=== PATIENT | female | born 1985 | race Caucasian/White ===

== ENCOUNTER 2018-12-25 01:45 | Inpatient (IN) | payer OTHER ==
[2018-12-25] MEDS ORDERED: DEXTROSE 5%-LACTATED RINGERS 500 ML IV ONE ×2 (04:00→05:00)
[2018-12-25] MEDS ORDERED: DEXTROSE 5%-LACTATED RINGERS 1,000 ML IV SCH (07:45)
[2018-12-25 08:12] VITALS: BMI 22.8
[2018-12-25] MEDS ORDERED: BUTORPHANOL TARTRATE 1 MG/ML VIAL IVPUSH ONE (08:15)
[2018-12-25] MEDS ORDERED: PROMETHAZINE HCL 25 MG/1 ML VIAL IVPUSH ONE (08:15)
[2018-12-25 08:19] LABS: COCAINE, UR NEGATIVE ng/ml (CUTOFF=300); METHADONE, UR NEGATIVE ng/ml (CUTOFF=300); OPIATES, URI NEGATIVE ng/ml (CUTOFF=300); PHENCYCLIDINE,URINE NEGATIVE ng/ml (CUTOFF=25); URINE AMPHETAMINES NEGATIVE ng/ml (CUTOFF=500); URINE BARBITURATES NEGATIVE ng/ml (CUTOFF=200); URINE BENZODIAZEPINES NEGATIVE ng/ml (CUTOFF=200)
[2018-12-25] MEDS ORDERED: BUTORPHANOL TARTRATE 2 MG/ML VIAL ONE (08:29)
[2018-12-25] MEDS ORDERED: PROMETHAZINE HCL 25 MG/1 ML VIAL ONE (08:30)
--- NOTE | 2018-12-25 08:50 | HP ---
Past Medical History - Admission Chief Complaint: contractions History of Present Illness: 33yo at term in labor. PNC limited at 2 [facility] with 2 visits History Source: Medical Record Limitations to Obtaining History: No Limitations - Past Medical History ...: 3 ...Para: 0 ...Term: 0 ...: 0 ...Spon : 2 ...Induced : 0 ...LMP: 03/29/18 ... Weeks Gestation by Dates: 38.5 ...EDC by Dates: 01/03/19 ...EDC by Sono: 01/01/19 - Past Surgical History Past Surgical History: Yes: None Hx Myomectomy: No Hx Transabdominal Cerclage: No - Smoking History Smoking history: Current every day smoker Have you smoked in the past 12 months: Yes Aproximately how many cigarettes per day: 3 If you are a former smoker, when did you quit?: still smoking - Alcohol/Substance Use Hx Alcohol Use: No Home Medications - Allergies Allergies/Adverse Reactions: Allergies Allergy/AdvReac Type Severity Reaction Status Date / Time No Known Allergies Allergy Verified 12/25/18 04:10 - Home Medications Home Medications: Ambulatory Orders Ferrous Sulfate [Iron] 1 tab PO DAILY 12/25/18 Vits96/Iron Fum/Folic [ Tablet] 1 tab PO DAILY 12/25/18 Review of Systems - Review of Systems Genitourinary: reports: Pain Physical Exam - Maternity Vital Signs: Vital Signs Temperature 97.9 F 12/25/18 08:00 Pulse Rate 108 H 12/25/18 08:00 Respiratory Rate 20 12/25/18 08:00 Blood Pressure 107/71 12/25/18 08:00 O2 Sat by Pulse Oximetry (%) Constitutional: Yes: Well Nourished, No Distress, Calm Eyes: Yes: WNL, Conjunctiva Clear, EOM Intact HENT: Yes: WNL, Atraumatic, Normocephalic Neck: Yes: WNL, Supple, Trachea Midline Cardiovascular: Yes: WNL, Regular Rate and Rhythm Breast(s): Yes: WNL - Abdominal Exam/OB Number of Fetuses: Single Presentation: Vertex Contractions: Yes Regularity: Irregular Intensity: Mild/Mod Monitor Mode: External Category: I Accelerations: Uniform Decelerations: None - Vaginal Exam/OB Vaginal Bleediing: No Amniotic Membrane Status: Intact Presentation: Vertex/Position Station: -1 - Physical Exam Musculoskeletal: Yes: WNL Extremities: Yes: WNL Hemorrhage Risk Assessment - Risk Factors Medium Risk Factors: Yes: None High Risk Factors: Yes: None Risk Score: 1 Risk Level: Medium Risk Problem List - Problems (1) Labor and delivery indication for care or intervention Assessment/Plan: 33yo at term in labor admit to labor and delivery pain management as needed expectant management for now cat [address] Hicks Code(s): O75.9 - COMPLICATION OF LABOR AND DELIVERY, UNSPECIFIED
--- NOTE | 2018-12-25 08:50 | DS ---
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
[2018-12-25] MEDS ORDERED: ELECTROLYTE-148 SOLN 1,000 ML IV SCH (10:00)
[2018-12-25 10:13] LABS: BASO % 0.4 % (0-2.0); HEMATOCRIT 30.5 % (32.4-45.2); HEMOGLOBIN 10.6 GM/dL (10.7-15.3); LYMPH % 17.1 % (8-40); MCH 31.6 pg (25.7-33.7); MCHC 34.6 g/dl (32.0-36.0); MEAN CELL VOLUME 91.2 fl (80-96); MEAN PLT VOLUME 9.3 fl (7.5-11.1); MONO % 5.1 % (3.8-10.2); NEUT % 76.4 % (42.8-82.8); PLATELET COUNT 179 K/MM3 (134-434); RBC 3.34 M/mm3 (3.60-5.2); RDW 14.1 % (11.6-15.6); WHITE BLOOD COUNT 9.3 K/mm3 (4.0-10.0)
[2018-12-25 10:25] LABS: PROTHROMBIN TIME (PATIENT) 11.8 SEC (9.7-13.0)
[2018-12-25 10:28] LABS: ACTIVATED PTT 28.7 SECONDS (25.2-36.5)
[2018-12-25 10:39] LABS: ANION GAP 8 MMOL/L (8-16); BLOOD UREA NITROGEN 4 mg/dL (7-18); CALCIUM 8.3 mg/dL (8.5-10.1); CHLORIDE 112 mmol/L (98-107); CO2 22 mmol/L (21-32); CREATININE 0.3 mg/dL (0.55-1.3); GLUCOSE,RANDOM 82 mg/dL (74-106); POTASSIUM 3.6 mmol/L (3.5-5.1); SODIUM 141 mmol/L (136-145)
[2018-12-25] MEDS ORDERED: BUPIVACAINE HCL/PF 0.25% (2.5MG/ML) 10 ML VIAL ONE (12:04)
[2018-12-25] MEDS ORDERED: FENTANYL/BUPIVACAINE/NS/PF - PCEA - 50 ML DISP.SYRIN EP ONE (12:05)
[2018-12-25] MEDS ORDERED: NALOXONE HCL 0.4 MG/ML VIAL IVPUSH PRN (12:30)
--- NOTE | 2018-12-25 12:36 | PN ---
Ante-Partal Exam - Subjective Subjective: now post stadol and has epidural--5 cm, 100, 0 station arom clear Vital Signs: Vital Signs Temperature 97.9 F 12/25/18 10:00 Pulse Rate 77 12/25/18 10:00 Respiratory Rate 20 12/25/18 10:00 Blood Pressure 116/61 12/25/18 10:00 O2 Sat by Pulse Oximetry (%) Bleeding: No Headache: No Visual changes: No Right upper quadrant pain: No - Contractions Contractions: Yes Regularity: Regular Intensity: Mild - Exam during Labor Heart Rate: 150 Variability: Moderate Heart Rate Location: Midline Category: I Monitor Accelerations: Present Monitor Decelerations: None Exam: Vaginal Dilatation (cm): 5 Effacement (%): 100 Amniotic Membrane Status: Ruptured Amniotic Fluid: Clear Presentation: Vertex
[2018-12-25] MEDS ORDERED: FENTANYL/BUPIVACAINE/NS/PF - PCEA - 50 ML DISP.SYRIN EP SCH (12:45)
[2018-12-25] MEDS ORDERED: OXYTOCIN 15 UNITS/ LR 250 ML 15 UNIT/250 ML INFUS.BAG IVPB SCH (12:45)
[2018-12-25] MEDS ORDERED: OXYTOCIN 30 UNITS in 0.9% NS 30 UNIT/500 ML INFUS.BAG IVPB ONE (12:54)
--- NOTE | 2018-12-25 13:55 | PN ---
Ante-Partal Exam - Subjective Vital Signs: Vital Signs Temperature 97.9 F 12/25/18 10:00 Pulse Rate 77 12/25/18 10:00 Respiratory Rate 20 12/25/18 10:00 Blood Pressure 116/61 12/25/18 10:00 O2 Sat by Pulse Oximetry (%) Bleeding: No Headache: No Visual changes: No Right upper quadrant pain: No - Contractions Contractions: Yes Regularity: Regular Intensity: Moderate - Exam during Labor Variability: Moderate Heart Rate Location: [facility] Category: I Monitor Accelerations: Present Monitor Decelerations: Late Exam: Vaginal Dilatation (cm): 5 Effacement (%): 100 Amniotic Membrane Status: Ruptured Amniotic Fluid: Clear, Meconium Stained Presentation: Vertex - Assessment/Plan Assessment/Plan: pt had another decel, 5 mins with recovery, pt unchanged and spoke with pt and will proceed with cs. pitocin dc'd, and oxygen Will proceed with cs at this time Team will be called in
[2018-12-25] MEDS ORDERED: MAGNESIUM SULFATE 20GM/500ML - 20 GM/500 ML INFUS.BAG IVPB SCH (14:15)
[2018-12-25] MEDS ORDERED: LIDO 2%/EPI 1:200000 PRESRVFRE (20 ML SDVIAL) ONE (14:23)
[2018-12-25] MEDS ORDERED: ceFAZolin SODIUM 1 GM VIAL ONE (14:46)
[2018-12-25] MEDS ORDERED: SODIUM CHLORIDE 0.9% P/F 10 ML VIAL IJ ONE (14:46)
[2018-12-25] MEDS ORDERED: OXYTOCIN 20 UNITS in 0.9% NS 20 UNIT/1,000 ML INFUS.BAG IV ONE ×2 (14:52→16:35)
[2018-12-25] MEDS ORDERED: morphine SULFATE/Preservative Free 0.5 MG/ML (1cc Syringe) EP ONE (15:22)
[2018-12-25] MEDS ORDERED: ONDANSETRON 4 MG/2 ML VIAL IVPUSH PRN (15:22)
[2018-12-25] MEDS ORDERED: IBUPROFEN 600 MG TABLET (FP) PO PRN (15:31)
[2018-12-25] MEDS ORDERED: METHYLERGONOVINE MALEATE 0.2 MG/1 ML AMP IM PRN (15:31)
[2018-12-25] MEDS: OXYTOCIN 20 UNITS in 0.9% NS 20 UNIT/1,000 ML INFUS.BAG IV SCH (16:44)
[2018-12-25] MEDS: SIMETHICONE 80 MG TAB.CHEW (FP) PO PRN (23:10)
[2018-12-25] MEDS: IBUPROFEN 600 MG TABLET (FP) PO PRN (23:10)
[2018-12-25] MEDS: ACETAMINOPHEN 325 MG TABLET (FP) PO PRN (23:10)
--- NOTE | 2018-12-26 00:01 | PN ---
Post Progress Note - Subjective Subjective: doing well, minmal pain, lochia normal Type of Delivery: Primary C/S Vital Signs: Vital Signs Temperature 99.3 F 12/25/18 21:25 Pulse Rate 97 H 12/25/18 21:25 Respiratory Rate 18 12/25/18 22:00 Blood Pressure 111/65 12/25/18 21:25 O2 Sat by Pulse Oximetry (%) 98 12/25/18 22:00 Breast Exam: Yes: Soft Uterus: Yes: Fundus Firm Incision: Yes: Dressing dry and intact Abdomen/GI: Yes: Abdomen soft Lochia: Yes: Rubra Lochia, amount: Small Extremities: Yes: Calves non-tender Perineum: Yes: Intact Activity: Ambulating - Labs Labs: CBC WBC 9.3 K/mm3 (4.0-10.0) 12/25/18 09:35 RBC 3.34 M/mm3 (3.60-5.2) L 12/25/18 09:35 Hgb 10.6 GM/dL (10.7-15.3) L 12/25/18 09:35 Hct 30.5 % (32.4-45.2) L 12/25/18 09:35 MCV 91.2 fl (80-96) 12/25/18 09:35 MCH 31.6 pg (25.7-33.7) 12/25/18 09:35 MCHC 34.6 g/dl (32.0-36.0) 12/25/18 09:35 RDW 14.1 % (11.6-15.6) 12/25/18 09:35 Plt Count 179 K/MM3 (134-434) 12/25/18 09:35 MPV 9.3 fl (7.5-11.1) 12/25/18 09:35 Absolute Neuts (auto) 7.1 K/mm3 (1.5-8.0) 12/25/18 09:35 Neutrophils % 76.4 % (42.8-82.8) 12/25/18 09:35 Lymphocytes % 17.1 % (8-40) 12/25/18 09:35 Monocytes % 5.1 % (3.8-10.2) 12/25/18 09:35 Eosinophils % 1.0 % (0-4.5) 12/25/18 09:35 Basophils % 0.4 % (0-2.0) 12/25/18 09:35 Nucleated RBC % 0 % (0-0) 12/25/18 09:35 Assessment/Plan as above pain meds cbc this am will dc juan alberto
[2018-12-26] MEDS: OXYTOCIN 20 UNITS in 0.9% NS 20 UNIT/1,000 ML INFUS.BAG IV SCH (00:35)
[2018-12-26] MEDS: ACETAMINOPHEN 325 MG TABLET (FP) PO PRN ×2 (07:07→19:16)
[2018-12-26] MEDS: SIMETHICONE 80 MG TAB.CHEW (FP) PO PRN ×3 (07:08→23:24)
[2018-12-26 08:02] LABS: BASO % 0.3 % (0-2.0); EOS % 0.7 % (0-4.5); HEMATOCRIT 28.8 % (32.4-45.2); HEMOGLOBIN 9.9 GM/dL (10.7-15.3); LYMPH % 10.4 % (8-40); MCH 31.6 pg (25.7-33.7); MCHC 34.6 g/dl (32.0-36.0); MEAN CELL VOLUME 91.5 fl (80-96); MEAN PLT VOLUME 9.2 fl (7.5-11.1); MONO % 5.2 % (3.8-10.2); NEUT % 83.4 % (42.8-82.8); PLATELET COUNT 132 K/MM3 (134-434); RBC 3.14 M/mm3 (3.60-5.2); RDW 13.8 % (11.6-15.6); WHITE BLOOD COUNT 13.7 K/mm3 (4.0-10.0)
[2018-12-26] MEDS: IBUPROFEN 600 MG TABLET (FP) PO PRN (19:16)
[2018-12-26] MEDS: BISACODYL 10 MG SUPP.RECT RC PRN (23:24)
[2018-12-27] MEDS: IBUPROFEN 600 MG TABLET (FP) PO PRN (01:31)
[2018-12-27] MEDS: ACETAMINOPHEN 325 MG TABLET (FP) PO PRN ×3 (01:31→21:53)
[2018-12-27] MEDS: oxyCODONE HCL 5 MG TABLET PO PRN ×3 (03:56→21:54)
--- NOTE | 2018-12-27 06:44 | PN ---
Progress Note, Physician Chief Complaint: s/p c section under epidural anesthesia History of Present Illness: post op day one - Current Medication List Current Medications: Active Medications Acetaminophen (Tylenol -) 650 mg PO Q4H PRN PRN Reason: PAIN Last Admin: 12/27/18 01:31 Dose: 650 mg Bisacodyl (Dulcolax Suppository -) 10 mg RC PRN PRN PRN Reason: CONSTIPATION Last Admin: 12/26/18 23:24 Dose: 10 mg Diphenhydramine HCl (Benadryl Injection -) 25 mg IVPUSH Q4H PRN PRN Reason: Pruritis Diphtheria/Tetanus/Acell Pertussis (Boostrix -) 0.5 ml IM .ONCE ONE Stop: 12/27/18 10:01 Ibuprofen (Motrin -) 600 mg PO Q4H PRN PRN Reason: PAIN LEVEL 1-5 Last Admin: 12/27/18 01:31 Dose: 600 mg Ibuprofen (Motrin -) 600 mg PO Q4H PRN PRN Reason: PAIN LEVEL 1 - 3 Last Admin: 12/26/18 07:06 Dose: 600 mg Influenza Virus Vaccine Quadrival (Flulaval Quad [id number]) 60 mcg IM .ONCE ONE Stop: 12/27/18 17:01 Methylergonovine Maleate (Methergine Injection -) 0.2 mg IM Q4H PRN PRN Reason: Excessive Bleeding (L&D) Naloxone HCl (Narcan -) 0.4 mg IVPUSH PRN PRN PRN Reason: Sedation Ondansetron HCl (Zofran Injection) 4 mg IVPUSH Q4H PRN PRN Reason: NAUSEA Oxycodone HCl (Roxicodone -) 5 mg PO Q4H PRN PRN Reason: PAIN LEVEL 4 - 6 Last Admin: 12/27/18 03:56 Dose: 5 mg Simethicone (Mylicon -) 80 mg PO Q4H PRN PRN Reason: GAS Last Admin: 12/26/18 23:24 Dose: 80 mg - Objective Vital Signs: Vital Signs Temperature 98.8 F 12/26/18 22:00 Pulse Rate 98 H 12/26/18 22:00 Respiratory Rate 18 12/26/18 22:00 Blood Pressure 115/73 12/26/18 22:00 O2 Sat by Pulse Oximetry (%) 98 12/25/18 22:00 Constitutional: Yes: Well Nourished Cardiovascular: Yes: WNL Respiratory: Yes: WNL Gastrointestinal: Yes: WNL Labs: CBC, BMP 12/26/18 07:00 12/25/18 09:35 INR, PTT INR 1.00 (0.83-1.09) 12/25/18 09:35 Assessment/Plan patient with no anesthetic complications, no complaints, pain controlled, no nausea or vomiting. dept of anesthesia will sign off care at this time
--- NOTE | 2018-12-27 10:03 | PN ---
Post Progress Note Post Day: 2 Type of Delivery: Primary C/S Vital Signs: Vital Signs Temperature 98.8 F 12/26/18 22:00 Pulse Rate 98 H 12/26/18 22:00 Respiratory Rate 18 12/26/18 22:00 Blood Pressure 115/73 12/26/18 22:00 O2 Sat by Pulse Oximetry (%) 98 12/25/18 22:00 Breast Exam: Yes: Soft Incision: Yes: Sutures intact Abdomen/GI: Yes: Abdomen soft Lochia: Yes: Rubra Lochia, amount: Small Extremities: Yes: Calves non-tender Perineum: Yes: Intact - Labs Labs: CBC WBC 13.7 K/mm3 (4.0-10.0) H 12/26/18 07:00 RBC 3.14 M/mm3 (3.60-5.2) L 12/26/18 07:00 Hgb 9.9 GM/dL (10.7-15.3) L 12/26/18 07:00 Hct 28.8 % (32.4-45.2) L 12/26/18 07:00 MCV 91.5 fl (80-96) 12/26/18 07:00 MCH 31.6 pg (25.7-33.7) 12/26/18 07:00 MCHC 34.6 g/dl (32.0-36.0) 12/26/18 07:00 RDW 13.8 % (11.6-15.6) 12/26/18 07:00 Plt Count 132 K/MM3 (134-434) L D 12/26/18 07:00 MPV 9.2 fl (7.5-11.1) 12/26/18 07:00 Absolute Neuts (auto) 11.4 K/mm3 (1.5-8.0) H 12/26/18 07:00 Neutrophils % 83.4 % (42.8-82.8) H 12/26/18 07:00 Lymphocytes % 10.4 % (8-40) D 12/26/18 07:00 Monocytes % 5.2 % (3.8-10.2) 12/26/18 07:00 Eosinophils % 0.7 % (0-4.5) 12/26/18 07:00 Basophils % 0.3 % (0-2.0) 12/26/18 07:00 Nucleated RBC % 0 % (0-0) 12/26/18 07:00 Assessment/Plan oob reg diet pain control
[2018-12-27] MEDS ORDERED: DIPHTH,PERTUSS(ACELL),TET 0.5 ML DISP.SYRIN IM ONE ×2 (12:00→13:00)
[2018-12-27] MEDS ORDERED: FLU VACCINE QUAD 60 MCG/0.5 ML (MDV 18-19) IM ONE (13:00)
[2018-12-27] MEDS: SIMETHICONE 80 MG TAB.CHEW (FP) PO PRN ×2 (17:24→21:53)
[2018-12-28] MEDS: BISACODYL 10 MG SUPP.RECT RC PRN (00:45)
[2018-12-28] MEDS: oxyCODONE HCL 5 MG TABLET PO PRN (01:41)
[2018-12-28] MEDS: IBUPROFEN 600 MG TABLET (FP) PO PRN ×2 (01:42→12:22)
[2018-12-28] MEDS: ACETAMINOPHEN 325 MG TABLET (FP) PO PRN ×2 (01:42→12:20)
[2018-12-28 07:26] LABS: BASO % 0.3 % (0-2.0); HEMATOCRIT 26.5 % (32.4-45.2); HEMOGLOBIN 9.4 GM/dL (10.7-15.3); LYMPH % 8.3 % (8-40); MCH 32.7 pg (25.7-33.7); MCHC 35.6 g/dl (32.0-36.0); MEAN PLT VOLUME 9.2 fl (7.5-11.1); MONO % 3.8 % (3.8-10.2); NEUT % 86.6 % (42.8-82.8); PLATELET COUNT 159 K/MM3 (134-434); RBC 2.88 M/mm3 (3.60-5.2); RDW 13.5 % (11.6-15.6); WHITE BLOOD COUNT 7.6 K/mm3 (4.0-10.0)
[2018-12-28] MEDS ORDERED: BENZOCAINE 20% 57 GM BOTTLE TP PRN (08:41)
[2018-12-28] MEDS ORDERED: WITCH HAZEL 50% (TUCKS) 40 PAD/JAR PAD TP PRN (08:42)
[2018-12-28 08:49] VITALS: BP 122/62; PULSE 87; TEMP 97.8
[2018-12-28] MEDS: SIMETHICONE 80 MG TAB.CHEW (FP) PO PRN (12:20)
--- NOTE | 2018-12-28 13:56 | PN ---
Post Progress Note Post Day: 3 Type of Delivery: Primary C/S Vital Signs: Vital Signs Temperature 97.8 F 12/28/18 08:30 Pulse Rate 87 12/28/18 08:30 Respiratory Rate 18 12/28/18 08:30 Blood Pressure 122/62 12/28/18 08:30 O2 Sat by Pulse Oximetry (%) 98 12/25/18 22:00 Breast Exam: Yes: Soft Uterus: Yes: Fundus Firm Incision: Yes: Sutures intact Abdomen/GI: Yes: Abdomen soft Lochia: Yes: Rubra Lochia, amount: Small Perineum: Yes: Intact - Labs Labs: CBC WBC 7.6 K/mm3 (4.0-10.0) 12/28/18 06:00 RBC 2.88 M/mm3 (3.60-5.2) L 12/28/18 06:00 Hgb 9.4 GM/dL (10.7-15.3) L 12/28/18 06:00 Hct 26.5 % (32.4-45.2) L 12/28/18 06:00 MCV 92.0 fl (80-96) 12/28/18 06:00 MCH 32.7 pg (25.7-33.7) 12/28/18 06:00 MCHC 35.6 g/dl (32.0-36.0) 12/28/18 06:00 RDW 13.5 % (11.6-15.6) 12/28/18 06:00 Plt Count 159 K/MM3 (134-434) D 12/28/18 06:00 MPV 9.2 fl (7.5-11.1) 12/28/18 06:00 Absolute Neuts (auto) 6.5 K/mm3 (1.5-8.0) 12/28/18 06:00 Neutrophils % 86.6 % (42.8-82.8) H 12/28/18 06:00 Lymphocytes % 8.3 % (8-40) D 12/28/18 06:00 Monocytes % 3.8 % (3.8-10.2) 12/28/18 06:00 Eosinophils % 1.0 % (0-4.5) 12/28/18 06:00 Basophils % 0.3 % (0-2.0) 12/28/18 06:00 Nucleated RBC % 0 % (0-0) 12/28/18 06:00 Assessment/Plan cont po care oob reg diet
--- NOTE | 2018-12-30 18:59 | PATH ---
Surgical Pathology Report Patient Name: NELLI LAMAS Med. Rec. #: [id number] /Age/Gender: 1985 (Age: 33) / F Account: [id number] Location: [facility]AMER Taken: 12/25/2018 Received: 12/27/2018 Reported: 12/30/2018 Physicians: Erik Castaneda M.D. Specimen(s) Received PLACENTA Clinical History , 39 gestational weeks, nonreassuring heart rate Final Diagnosis PLACENTA, SECTION: 422 G THIRD TRIMESTER PLACENTA WITH TRIVASCULAR UMBILICAL CORD AND UNREMARKABLE PLACENTAL MEMBRANES. Electronically Signed Mary Ibarra M.D. Gross Description The specimen is received fresh labeled placenta and is a 422 gram, 13.5 x 15.0 x 2.2 cm. placenta with attached membranes and umbilical cord. The attached membranes are tello, translucent with focal opacities and insert marginally. The umbilical cord measures 20 cm. in length and averages 1 cm. in diameter. The cord inserts eccentrically, 3.5 cm. to the nearest margin. No true knots or strictures are identified. Cut surface of the umbilical cord reveals 3 vessels. The surface is bergeron blue with moderate fibrin deposition and appropriate caliber vessels. The maternal surface is red-brown with focal defects. Sectioning reveals red-brown, spongy parenchyma. No lesions are identified. Radio Television Technical Director sections are submitted in three cassettes as follows: 1- membrane rolls and umbilical cord; 2-3- full thickness sections of placenta. /12/29/2018 [facility]12/29/2018
--- NOTE | 2019-02-16 16:30 | OP ---
DATE OF OPERATION: DATE OF DICTATION: 02/16/2019 PREOPERATIVE DIAGNOSES: Gravid female in labor, with repetitive decelerations, category 3 tracing. POSTOPERATIVE DIAGNOSES: Gravid female in labor, with repetitive decelerations, category 3 tracing. PROCEDURE: section. OPERATING SURGEON: Valeriano Ribeiro MD ANESTHESIA: Spinal anesthesia. COMPLICATIONS: None. FINDINGS: A single live , Apgars of 8 and 9. Normal tubes, ovaries, and placenta. ESTIMATED BLOOD LOSS: 600 mL. DISPOSITION: To recovery room. PROCEDURE: The patient was consented prior to entering the operating suite. Patient put on the table in the dorsal supine position, prepped and draped in the usual sterile fashion. A low Pfannenstiel incision was carried down to the level of the fascia. The fascia was then transected to the left and right of midline. The gravid uterus was then identified after separation of the muscles and the peritoneum. A transverse incision was made. A small gush of fluid was then identified. The infant's head was then delivered atraumatically through the incision. The cord was then clamped and cut. The was then handed off to the awaiting basket filler. At this time, the inferior aspect of the uterus was cleaned with a semi-wet lap pad. The right and left paracolic gutters were inspected and no bleeding identified. The uterus was then closed in double layer of 0 Vicryl suture. The peritoneum with the muscle was then approximated. The fascia was then closed. The skin was then closed subcuticularly. The patient was sent to recovery room in stable alert condition. VALERIANO RIBEIRO M.D. REGINA/[id number]
== END 2018-12-28 17:10 | disposition home or self-care (01) | DRG 540 ==
LOC: JDEL 01:45 → JLDR 07:00 → J3W 17:00
PROVIDERS: ADMIT Obstetrics & Gynecology; ATTEND Obstetrics & Gynecology
PROC: 10D00Z1 Extraction of Products of Conception, Low, Open Approach (ICD-10-PCS; principal; 2018-12-25)
DX: O76 Abnormality in fetal heart rate and rhythm complicating labor and delivery (principal); Z3A.39 39 weeks gestation of pregnancy; Z37.0 Single live birth
CPT/HCPCS: 36415; 59025; 80048; 80307; 85025; 85610; 85730; 86593; 86850; 86900; 86901; 88307-TC; 90688; 90715; G0008